=== PATIENT | female | born 1990 | race Caucasian/White ===

== ENCOUNTER 2018-04-09 09:14 | Day surgery (SDC) | payer BC ==
[2018-04-06 16:33] LABS: BASOPHILS % (AUTO) 0.3 % (0-1); EOSINOPHILS # (AUTO) 0.1 X10'3 (0-0.9); EOSINOPHILS % (AUTO) 1.9 % (0-6); LYMPHOCYTES # (AUTO) 1.9 X10'3 (1.1-4.8); LYMPHOCYTES % (AUTO) 32.7 % (21-51); MEAN CORPUSCULAR HEMOGLOBIN 31.9 PG (27.0-31.0); MEAN CORPUSCULAR VOLUME 91.2 FL (78-98); MEAN PLATELET VOLUME 9.4 FL (7.4-10.4); MONOCYTES # (AUTO) 0.3 X10'3 (0-0.9); MONOCYTES % (AUTO) 5.8 % (2-12); NEUTROPHILS # (AUTO) 3.4 X10'3 (1.8-7.7); NEUTROPHILS % (AUTO) 59.3 % (42-75); PRE OP HEMATOCRIT 41.4 % (35.0-45.0); PRE OP HEMOGLOBIN 14.5 g/dL (12.0-16.0); PRE OP PLATELET COUNT 184 X10'3 (140-440); RED BLOOD COUNT 4.54 X10'6 (4.20-5.60); RED CELL DISTRIBUTION WIDTH 12.3 % (11.5-14.5)
[2018-04-06 16:41] LABS: URINE HCG NEGATIVE (NEG)
[2018-04-06 16:51] LABS: ALBUMIN 3.8 G/DL (3.4-5.0); ALBUMIN/GLOBULIN RATIO 1.2 (1.1-1.5); ALKALINE PHOSPHATASE 83 IU/L (46-116); BLOOD UREA NITROGEN 16 MG/DL (7-18); BUN/CREATININE RATIO 22.9 (6.6-38.0); CALCIUM 8.6 MG/DL (8.5-10.1); CHLORIDE 106 MMOL/L (99-107); PRE OP ALT 21 U/L (30-65); PRE OP ANION GAP 6 (8-16); PRE OP AST 18 U/L (10-37); PRE OP BILIRUB, TOTAL 0.3 MG/DL (0.0-1.0); PRE OP GLUCOSE 85 MG/DL (70-104); PRE OP POTASSIUM 3.6 MMOL/L (3.4-5.1); PRE OP SODIUM 142 MMOL/L (135-145); TOTAL CARBON DIOXIDE 30.4 MMOL/L (24-32); TOTAL PROTEIN 6.9 G/DL (6.4-8.2); eGFR > 90 ML/MIN
[~2018-04-09] VITALS: Ht 165.1 cm; Wt 64.9 kg
[2018-04-09] VITALS (7 sets, daily range): BP systolic 100–128; BP diastolic 58–72
[~2018-04-09 09:14] MED LIST: NO HOME MEDS; ceFOXitin 2 GM ADDvantage bag 100 ML IV ONE; famotidine 20mg tablet PO ONE; ringers solution, lacted 1,000 ML IV SCH
[2018-04-09] MEDS ORDERED: epiNEPHrine 1 mg/ml inj ONE (10:02)
[2018-04-09] MEDS ORDERED: BUPIVAcaine/PF 7.5mg/ml (0.75%) 10ml vial ONE (10:03)
[2018-04-09] MEDS ORDERED: ROPIVAcaine 0.5% (5mg/ml) 30ml vial ONE (10:41)
[2018-04-09] MEDS ORDERED: sevoflurane 250ml liquid IH ONE (10:45)
[2018-04-09] MEDS ORDERED: ketorolac trometh. 30mg/ml inj. ONE (10:45)
[2018-04-09] MEDS ORDERED: dexamethasone sod phosphate 10mg/ml inj ONE (10:45)
[2018-04-09] MEDS ORDERED: fentaNYL/PF 50MCG/1 ML 2ML syringe ONE (10:51)
[2018-04-09] MEDS ORDERED: midazolam 2 mg/2 ml injection ONE (10:51)
[2018-04-09] MEDS ORDERED: rocuronium 10mg/ml inj IV ONE (10:53)
[2018-04-09] MEDS ORDERED: propofol inj 20 ML IV ONE (10:53)
[2018-04-09] MEDS ORDERED: LIDOcaine 2% (20mg/ml) 5ml vial ONE (10:53)
[2018-04-09] MEDS ORDERED: ringers solution, lacted 1,000 ML IV SCH (11:23)
[2018-04-09] MEDS ORDERED: morphine 4 MG/ML inj SYRINge IV PRN ×2 (11:25)
[2018-04-09] MEDS ORDERED: proCHLORperazine 10 MG/2 ml inj IV PRN (11:25)
[2018-04-09] MEDS ORDERED: meperidine/PF 25mg/ml syringe IV PRN ×3 (11:25)
[2018-04-09] MEDS ORDERED: ondansetron/PF 4mg/2ml inj IV PRN (11:25)
[2018-04-09] MEDS ORDERED: ondansetron/PF 4mg/2ml inj ONE (11:29)
[2018-04-09] MEDS ORDERED: glycopyrrolate 0.2mg/ml inj ONE (11:31)
[2018-04-09] MEDS ORDERED: neostigmine methylsulfate 1 MG/ML 10ml vial ONE (11:31)
== END 2018-04-09 12:40 | disposition home or self-care (01) ==
LOC: PAS 09:14
PROVIDERS: ATTEND Obstetrics & Gynecology Obstetrics
DX: Z30.2 Encounter for sterilization (principal); Z30.432 Encounter for removal of intrauterine contraceptive device; Z79.1 Long term (current) use of non-steroidal anti-inflammatories (NSAID); Z79.899 Other long term (current) drug therapy; Z98.890 Other specified postprocedural states
CPT/HCPCS: 36415; 58301; 58661; 80053; 81025; 85025; 86885; 86900; 86901; J0694; J1100; J1885; J2001; J2250; J2405; J2704; J2710; J2795; J3010; J3490; J7120; A7000; J0171